=== PATIENT | male | born 1965 | race Caucasian/White ===

== ENCOUNTER 2019-02-19 19:32 | Emergency (ER) | payer BC, OTHER ==
[~2019-02-19] VITALS: Ht 188 cm; Wt 102.1 kg
[~2019-02-19 19:32] MED LIST: GABA100C9 PO; OME20GT; SERT-160 PO
[2019-02-19] MEDS ORDERED: ACETAMINOPHEN/CODEINE#3 (300/30mg) TAB PO ONE (23:00)
[2019-02-19 23:17] VITALS: BP 131/58
== END 2019-02-19 23:32 | disposition home or self-care (01) ==
LOC: ER 19:32
DX: R07.81 Pleurodynia (principal); Z79.899 Other long term (current) drug therapy; W18.39XA Other fall on same level, initial encounter; Y93.89 Activity, other specified; Y99.0 Civilian activity done for income or pay; Y92.89 Other specified places as the place of occurrence of the external cause
CPT/HCPCS: 71046

== ENCOUNTER → 2019-08-22 | Outpatient (CLI) | payer BC ==
[2019-08-22 08:45] LABS: Basophils # (auto) 0 10 ^3/uL (0-0.2); Basophils % (auto) 0.9 % (0.0-2.0); Eosinophils # (auto) 0.1 10 ^3/uL (0-0.8); Eosinophils % (auto) 1.1 % (0.0-7.0); Hematocrit 43.8 % (41.0-53.0); Hemoglobin 14.9 g/dL (13.5-17.5); Lymphocytes # (auto) 1.6 10 ^3/uL (0.4-5.4); Lymphocytes % (auto) 29.3 % (10.0-50.0); Mean Corpuscular Hemoglobin 30.9 pg (28.0-32.0); Monocytes # (auto) 0.5 10 ^3/uL (0-1.3); Monocytes % (auto) 8.5 % (0.0-12.0); Neutrophils # (auto) 3.2 10 ^3/uL (1.6-8.6); Neutrophils % (auto) 60.2 % (37.0-80.0); Nucleated Red Blood Cells % 0.1 %; Platelet Count (auto) 187 10^3/uL (140-450); Red Blood Cells 4.82 10^6/uL (4.5-5.90); Red Cell Distribution Width 13.4 % (11.8-14.3); White Blood Cell 5.3 10^3/uL (4.4-10.8)
[2019-08-22 08:46] LABS: Urine Bacteria NONE SEEN /hpf (None Seen); Urine Blood Negative /uL (Negative); Urine WBC 1 /hpf (0 - 3)
[2019-08-22 09:39] LABS: Albumin 4.1 g/dL (3.4-5.0); Potassium 4.6 mmol/L (3.5-5.1)
[2019-08-22 09:54] LABS: BUN/Creatinine Ratio 22.3; Bilirubin, Total 0.6 mg/dL (0.2-1.0); Calcium 9.2 mg/dL (8.5-10.1); Total Protein 7.6 g/dL (6.4-8.2)
== END | disposition home or self-care (01) ==
LOC: LAB 08:10
PROVIDERS: ATTEND Nurse Practitioner
DX: Z00.00 Encounter for general adult medical examination without abnormal findings (principal); E78.5 Hyperlipidemia, unspecified
CPT/HCPCS: 36415; 80053; 80061; 81001; 82270; 84443; 85025

== ENCOUNTER → 2020-10-26 | Day surgery (SDC) | payer BC ==
[2020-10-22 10:35] LABS: Basophils # (auto) 0.1 10 ^3/uL (0-0.2); Basophils % (auto) 1.2 % (0.0-2.0); Eosinophils # (auto) 0.1 10 ^3/uL (0-0.8); Eosinophils % (auto) 1.8 % (0.0-7.0); Hematocrit 39.2 % (41.0-53.0); Lymphocytes # (auto) 1.8 10 ^3/uL (0.4-5.4); Lymphocytes % (auto) 34.8 % (10.0-50.0); Mean Corpuscular Hemoglobin 32.5 pg (28.0-32.0); Mean Corpuscular Hgb Conc. 35.7 g/dL (32.0-36.0); Mean Corpuscular Volume 90.9 fL (80.0-100.0); Monocytes # (auto) 0.5 10 ^3/uL (0-1.3); Monocytes % (auto) 10.2 % (0.0-12.0); Neutrophils # (auto) 2.8 10 ^3/uL (1.6-8.6); Nucleated Red Blood Cells % 0.1 %; Platelet Count (auto) 172 10^3/uL (140-450); Red Blood Cells 4.32 10^6/uL (4.5-5.90); Red Cell Distribution Width 13.5 % (11.8-14.3); White Blood Cell 5.3 10^3/uL (4.4-10.8)
[2020-10-22 10:51] LABS: INR 0.96 (0.9-1.15); Partial Thromboplastin Time 30.1 sec (23.0-31.2)
[2020-10-22 11:20] LABS: Potassium 4.1 mmol/L (3.5-5.1)
[2020-10-22 11:21] LABS: Urine Bacteria NONE SEEN /hpf (None Seen); Urine Blood Negative /uL (Negative); Urine Specific Gravity 1.009 (1.001-1.035); Urine WBC <1 /hpf (0 - 3)
[2020-10-22 11:33] LABS: Albumin 4.1 g/dL (3.4-5.0); BUN/Creatinine Ratio 25.9; Bilirubin, Total 0.7 mg/dL (0.2-1.0); Calcium 8.8 mg/dL (8.5-10.1); Total Protein 7.7 g/dL (6.4-8.2)
[~2020-10-26] VITALS: Ht 188 cm; Wt 106.6 kg
[~2020-10-26] MED LIST changes: +BUPIVACAINE 0.25% INJ 50ML VIAL ONE; -GABA100C9 PO; +HYDR25TA5 PO; +HYDROmorphone HCL 2 MG/ML VL IV PRN; +IBUP800T27 PO; +LAMO100T44 PO; +LIDOCAINE 2% (LOCAL ANESTH.) PF 5ml SDV ONE; +LISI20TA28 PO; +MIDAZOLAM HCL 1MG/1ML-2 ML VIAL ONE; -OME20GT; +ONDANSETRON HCL 4 MG/2 ML VIAL IV PRN; +PROPOFOL 10 MG/ML 20 ML IV ONE; +ceFAZolin 1GM/50ML 100 ML IV ONE; +fentaNYL CITRATE 100 MCG/2 ML VL ONE
[2020-10-26 08:40] VITALS: BP 119/55
== END | disposition home or self-care (01) ==
LOC: SUR 06:03
PROVIDERS: ATTEND Orthopaedic Surgery Adult Reconstructive Orthopaedic Surgery
DX: M65.331 Trigger finger, right middle finger (principal); I10 Essential (primary) hypertension; F32.9 Major depressive disorder, single episode, unspecified; Z20.822 Contact with and (suspected) exposure to COVID-19
CPT/HCPCS: 26055; 36415; 80053; 81001; 85025; 85610; 85730; J0690; J2001; J2250; J2704; J3010; J3490; U0003

== ENCOUNTER 2020-11-08 08:06 | Inpatient (IN) | payer BC ==
[~2020-11-08] VITALS: Ht 188 cm; Wt 107.3 kg
[~2020-11-08 08:06] MED LIST changes: -BUPIVACAINE 0.25% INJ 50ML VIAL ONE; -HYDROmorphone HCL 2 MG/ML VL IV PRN; -LIDOCAINE 2% (LOCAL ANESTH.) PF 5ml SDV ONE; -MIDAZOLAM HCL 1MG/1ML-2 ML VIAL ONE; -ONDANSETRON HCL 4 MG/2 ML VIAL IV PRN; -PROPOFOL 10 MG/ML 20 ML IV ONE; -ceFAZolin 1GM/50ML 100 ML IV ONE; -fentaNYL CITRATE 100 MCG/2 ML VL ONE
[2020-11-08] MEDS ORDERED: SODIUM CHLORIDE 0.9% 1,000 ML IV ONE (09:45)
[2020-11-08] MEDS ORDERED: METOCLOPRAMIDE HCL 5MG/ml INJ 2ml VIAL IV ONE (09:45)
[2020-11-08] MEDS ORDERED: cefTRIAXone 1GM/50ML D5W 50 ML IV ONE (09:45)
[2020-11-08] MEDS ORDERED: HYDROmorphone HCL 2 MG/ML VL IV ONE (09:45)
[2020-11-08 10:30] LABS: Basophils # (auto) 0 10 ^3/uL (0-0.2); Basophils % (auto) 0.5 % (0.0-2.0); Eosinophils # (auto) 0 10 ^3/uL (0-0.8); Eosinophils % (auto) 0.6 % (0.0-7.0); Hematocrit 37.8 % (41.0-53.0); Hemoglobin 13.3 g/dL (13.5-17.5); Lymphocytes # (auto) 1.3 10 ^3/uL (0.4-5.4); Lymphocytes % (auto) 18.8 % (10.0-50.0); Mean Corpuscular Hemoglobin 32.2 pg (28.0-32.0); Mean Corpuscular Hgb Conc. 35.2 g/dL (32.0-36.0); Mean Corpuscular Volume 91.4 fL (80.0-100.0); Monocytes # (auto) 0.6 10 ^3/uL (0-1.3); Monocytes % (auto) 8.7 % (0.0-12.0); Neutrophils # (auto) 4.9 10 ^3/uL (1.6-8.6); Neutrophils % (auto) 71.4 % (37.0-80.0); Nucleated Red Blood Cells % 0.1 %; Platelet Count (auto) 166 10^3/uL (140-450); Red Blood Cells 4.13 10^6/uL (4.5-5.90); Red Cell Distribution Width 13.3 % (11.8-14.3); White Blood Cell 6.8 10^3/uL (4.4-10.8)
[2020-11-08 10:44] LABS: Albumin 3.7 g/dL (3.4-5.0); Calcium 8.9 mg/dL (8.5-10.1); Magnesium 2.5 mg/dL (1.6-2.6); Potassium 4.2 mmol/L (3.5-5.1)
[2020-11-08 10:47] LABS: BUN/Creatinine Ratio 22.1; Bilirubin, Total 0.5 mg/dL (0.2-1.0); Total Protein 7.3 g/dL (6.4-8.2)
[2020-11-08] MEDS ORDERED: ONDANSETRON HCL 4 MG/2 ML VIAL IV PRN (13:30)
[2020-11-08] MEDS ORDERED: MORPHINE SULF INJ 2 MG/ML SYRINGE 1ML IV PRN (13:30)
[2020-11-08] MEDS ORDERED: NITROGLYCERIN 0.4 MG SL TAB SL PRN (13:30)
[2020-11-08] MEDS: HYDROmorphone HCL 2 MG/ML VL IV PRN ×3 (13:53→21:50)
[2020-11-08] MEDS: CLINDAMYCIN 300MG IV 50 ML IV SCH ×2 (13:53→21:50)
[2020-11-08] MEDS: HYDROcodone-ACET 7.5/325MG TAB PO PRN (16:46)
[2020-11-08 20:08] VITALS: BP 141/64
[2020-11-08 22:00] VITALS: BP 141/64
[2020-11-09] MEDS: HYDROmorphone HCL 2 MG/ML VL IV PRN ×6 (02:32→22:43)
[2020-11-09 04:47] VITALS: BP 123/52
[2020-11-09] MEDS: CLINDAMYCIN 300MG IV 50 ML IV SCH ×3 (06:30→21:32)
[2020-11-09 07:03] LABS: Basophils # (auto) 0 10 ^3/uL (0-0.2); Basophils % (auto) 0.4 % (0.0-2.0); Eosinophils # (auto) 0.1 10 ^3/uL (0-0.8); Hematocrit 35.4 % (41.0-53.0); Hemoglobin 12.6 g/dL (13.5-17.5); Lymphocytes # (auto) 1.7 10 ^3/uL (0.4-5.4); Mean Corpuscular Hemoglobin 32.5 pg (28.0-32.0); Mean Corpuscular Hgb Conc. 35.7 g/dL (32.0-36.0); Monocytes # (auto) 0.5 10 ^3/uL (0-1.3); Monocytes % (auto) 9.2 % (0.0-12.0); Neutrophils # (auto) 2.9 10 ^3/uL (1.6-8.6); Neutrophils % (auto) 56.4 % (37.0-80.0); Platelet Count (auto) 154 10^3/uL (140-450); Red Blood Cells 3.89 10^6/uL (4.5-5.90); Red Cell Distribution Width 13.5 % (11.8-14.3); White Blood Cell 5.2 10^3/uL (4.4-10.8)
[2020-11-09 07:21] LABS: BUN/Creatinine Ratio 27.9; Calcium 8.7 mg/dL (8.5-10.1); Potassium 4.1 mmol/L (3.5-5.1)
[2020-11-09 09:00] VITALS: BP 134/64
[2020-11-09] MEDS: cefTRIAXone 1GM/50ML D5W 50 ML IV SCH (09:31)
[2020-11-09] MEDS: FLORASTOR (S. BOULARDII) 250 MG CAP PO SCH (09:31)
[2020-11-09 13:00] VITALS: BP 119/54
[2020-11-09 17:00] VITALS: BP 134/45
[2020-11-09] MEDS: HYDROcodone-ACET 7.5/325MG TAB PO PRN (17:25)
[2020-11-09 22:00] VITALS: BP 131/62
[2020-11-10] MEDS: HYDROmorphone HCL 2 MG/ML VL IV PRN ×5 (03:58→21:30)
[2020-11-10 05:00] VITALS: BP 141/63
[2020-11-10] MEDS: CLINDAMYCIN 300MG IV 50 ML IV SCH ×3 (06:19→21:30)
[2020-11-10 08:27] VITALS: BP 128/66
[2020-11-10] MEDS: FLORASTOR (S. BOULARDII) 250 MG CAP PO SCH (08:31)
[2020-11-10] MEDS: cefTRIAXone 1GM/50ML D5W 50 ML IV SCH (08:31)
[2020-11-10 12:43] VITALS: BP 129/70
[2020-11-10] MEDS ORDERED: HYDROcodone-ACET 10/325MG TAB PO ONE (13:00)
[2020-11-10 16:58] VITALS: BP 146/65
[2020-11-10 22:25] VITALS: BP 134/67
[2020-11-11 05:14] VITALS: BP 134/63
[2020-11-11] MEDS: CLINDAMYCIN 300MG IV 50 ML IV SCH ×2 (05:33→13:20)
[2020-11-11] MEDS: HYDROmorphone HCL 2 MG/ML VL IV PRN ×3 (05:33→13:19)
[2020-11-11] MEDS: cefTRIAXone 1GM/50ML D5W 50 ML IV SCH (08:35)
[2020-11-11 09:00] VITALS: BP 135/64
[2020-11-11] MEDS: FLORASTOR (S. BOULARDII) 250 MG CAP PO SCH (10:20)
[2020-11-11 13:00] VITALS: BP 123/68
[2020-11-11 16:38] VITALS: BP 123/79
[2020-11-11 16:43] VITALS: BP 142/61
== END 2020-11-11 17:00 | disposition home or self-care (01) | DRG 863 ==
LOC: ER 08:06 → OVERFLOW 13:22 → WEST WING 20:08
PROVIDERS: ADMIT Nurse Practitioner Acute Care; ATTEND Internal Medicine
DX: T81.40XA Infection following a procedure, unspecified, initial encounter (principal); L03.113 Cellulitis of right upper limb; Z20.822 Contact with and (suspected) exposure to COVID-19; I10 Essential (primary) hypertension; E66.9 Obesity, unspecified; Z96.659 Presence of unspecified artificial knee joint; Y83.8 Other surgical procedures as the cause of abnormal reaction of the patient, or of later complication, without mention of misadventure at the time of the procedure; B95.61 Methicillin susceptible Staphylococcus aureus infection as the cause of diseases classified elsewhere; Z79.899 Other long term (current) drug therapy; Y92.89 Other specified places as the place of occurrence of the external cause; Z68.30 Body mass index [BMI] 30.0-30.9, adult; Z71.3 Dietary counseling and surveillance
CPT/HCPCS: 36415; 73200; 80048; 80053; 83735; 85025; 87077; 87186; 87205; 87426; 96365; 96375; G0378; J0696; J3490

== ENCOUNTER → 2022-06-28 | Outpatient (CLI) | payer BC ==
[~2022-06-28] MED LIST changes: -IBUP800T27 PO
[2022-06-28 07:34] LABS: Basophils # (auto) 0 10 ^3/uL (0-0.2); Eosinophils # (auto) 0.2 10 ^3/uL (0-0.8); Eosinophils % (auto) 4.8 % (0.0-7.0); Hematocrit 42.1 % (41.0-53.0); Hemoglobin 14.5 g/dL (13.5-17.5); Lymphocytes # (auto) 1.6 10 ^3/uL (0.4-5.4); Lymphocytes % (auto) 34.3 % (10.0-50.0); Mean Corpuscular Hemoglobin 31.1 pg (28.0-32.0); Mean Corpuscular Hgb Conc. 34.5 g/dL (32.0-36.0); Mean Corpuscular Volume 90.2 fL (80.0-100.0); Monocytes # (auto) 0.4 10 ^3/uL (0-1.3); Monocytes % (auto) 8.6 % (0.0-12.0); Neutrophils # (auto) 2.4 10 ^3/uL (1.6-8.6); Neutrophils % (auto) 51.3 % (37.0-80.0); Nucleated Red Blood Cells % 0.5 %; Red Blood Cells 4.66 10^6/uL (4.5-5.90); Red Cell Distribution Width 13.8 % (11.8-14.3); White Blood Cell 4.8 10^3/uL (4.4-10.8)
[2022-06-28 07:42] LABS: Urine Bacteria NONE SEEN /hpf (None Seen); Urine Blood Negative /uL (Negative); Urine Specific Gravity 1.019 (1.001-1.035); Urine WBC <1 /hpf (0 - 3)
[2022-06-28 08:13] LABS: Potassium 4.5 mmol/L (3.5-5.1)
[2022-06-28 08:17] LABS: BUN/Creatinine Ratio 20.9; Calcium 9.2 mg/dL (8.5-10.1)
[2022-06-28 08:20] LABS: Bilirubin, Total 0.5 mg/dL (0.2-1.0); Total Protein 7.5 g/dL (6.4-8.2)
== END | disposition home or self-care (01) ==
LOC: LAB 07:18
PROVIDERS: ATTEND Nurse Practitioner
DX: I10 Essential (primary) hypertension (principal); E78.5 Hyperlipidemia, unspecified
CPT/HCPCS: 36415; 80053; 80061; 81001; 84443; 85025

== ENCOUNTER → 2022-10-13 | Outpatient (CLI) | payer BC ==
[2022-10-13 11:02] LABS: Basophils # (auto) 0 10 ^3/uL (0-0.2); Eosinophils # (auto) 0.1 10 ^3/uL (0-0.8); Eosinophils % (auto) 2.2 % (0.0-7.0); Hematocrit 39.5 % (41.0-53.0); Hemoglobin 13.7 g/dL (13.5-17.5); Lymphocytes # (auto) 1.5 10 ^3/uL (0.4-5.4); Lymphocytes % (auto) 34.2 % (10.0-50.0); Mean Corpuscular Hemoglobin 30.9 pg (28.0-32.0); Mean Corpuscular Hgb Conc. 34.7 g/dL (32.0-36.0); Mean Corpuscular Volume 89.2 fL (80.0-100.0); Monocytes # (auto) 0.3 10 ^3/uL (0-1.3); Monocytes % (auto) 7.8 % (0.0-12.0); Neutrophils # (auto) 2.5 10 ^3/uL (1.6-8.6); Neutrophils % (auto) 54.8 % (37.0-80.0); Nucleated Red Blood Cells % 0.2 %; Red Blood Cells 4.42 10^6/uL (4.5-5.90); Red Cell Distribution Width 13.8 % (11.8-14.3); White Blood Cell 4.5 10^3/uL (4.4-10.8)
[2022-10-13 11:13] LABS: Urine Bacteria NONE SEEN /hpf (None Seen); Urine Blood Negative /uL (Negative); Urine Specific Gravity 1.012 (1.001-1.035); Urine WBC <1 /hpf (0 - 3)
[2022-10-13 12:12] LABS: Potassium 4.3 mmol/L (3.5-5.1)
[2022-10-13 12:20] LABS: Albumin 4.1 g/dL (3.4-5.0); BUN/Creatinine Ratio 26.3 (10.0-20.0); Bilirubin, Total 0.5 mg/dL (0.2-1.0); Calcium 8.7 mg/dL (8.5-10.1); Total Protein 7.2 g/dL (6.4-8.2)
== END | disposition home or self-care (01) ==
LOC: LAB 10:37
PROVIDERS: ATTEND Nurse Practitioner
DX: I10 Essential (primary) hypertension (principal); E78.5 Hyperlipidemia, unspecified; R53.82 Chronic fatigue, unspecified
CPT/HCPCS: 36415; 80053; 80061; 81001; 84153; 84403; 84443; 85025

== ENCOUNTER 2024-10-28 06:16 | Inpatient (IN) | payer BC ==
[2024-10-24 10:55] LABS: Urine Bacteria None Seen /hpf (None Seen)
[2024-10-24 11:07] LABS: Basophils # (auto) 0.1 10 ^3/uL (0-0.2); Basophils % (auto) 0.9 % (0.0-2.0); Eosinophils # (auto) 0.1 10 ^3/uL (0-0.8); Eosinophils % (auto) 1.5 % (0.0-7.0); Hematocrit 43.4 % (41.0-53.0); Lymphocytes # (auto) 1.9 10 ^3/uL (0.4-5.4); Lymphocytes % (auto) 32.7 % (10.0-50.0); Mean Corpuscular Hemoglobin 31.1 pg (28.0-32.0); Mean Corpuscular Hgb Conc. 34.5 g/dL (32.0-36.0); Monocytes # (auto) 0.5 10 ^3/uL (0-1.3); Neutrophils # (auto) 3.2 10 ^3/uL (1.6-8.6); Neutrophils % (auto) 55.9 % (37.0-80.0); Platelet Count (auto) 177 10^3/uL (140-450); Red Blood Cells 4.82 10^6/uL (4.5-5.90); White Blood Cell 5.8 10^3/uL (4.4-10.8)
[2024-10-24 11:09] LABS: Urine Blood Negative /uL (Negative); Urine Clarity Clear (Clear); Urine Color Light-Yellow (Yellow); Urine Protein, UAD Negative (Negative); Urine Specific Gravity 1.009 (1.001-1.035); Urine Squamous Epithelial Cell None Seen /hpf (<5); Urine Urobilinogen Normal (Negative); Urine pH 5.5 (5.0-9.0)
[2024-10-24 11:13] LABS: Urine WBC < 1 /HPF (0-3)
[2024-10-24 11:25] LABS: Alanine Aminotransferase 36 U/L (7-40); Alkaline Phosphatase 90 U/L (46-116); Anion Gap 8 (5-15); Aspartate Aminotransferase 29 U/L (13-40); Bilirubin, Total 0.6 mg/dL (0.2-1.0); Blood Urea Nitrogen 18 mg/dL (9-23); Calcium 10.1 mg/dL (8.7-10.4); Carbon Dioxide 28 mmol/L (20-31); Chloride 103 mmol/L (98-107); Glucose 100 mg/dL (74-106); Potassium 4.5 mmol/L (3.5-5.1); Sodium 139 mmol/L (136-145); Total Protein 7.6 g/dL (5.7-8.2)
[2024-10-24 11:26] LABS: INR 0.96 (0.9-1.15); Partial Thromboplastin Time 28.2 SEC (24.5-34.5); Prothrombin Time 10.2 sec (9.3-11.8)
[2024-10-28] VITALS (14 sets, daily range): BP systolic 109–134; BP diastolic 44–67; PULSE 60–87; RESP 13–18; TEMP 98.4–99.6; O2SAT 90–97
[~2024-10-28] VITALS: Ht 188 cm; Wt 104.3 kg
[~2024-10-28 06:16] MED LIST changes: +BUPR-133 PO; -LAMO100T44 PO; -LISI20TA28 PO; +LISI20TA56 PO
[2024-10-28] MEDS: BUPIVACAINE 0.25% INJ 50ML VIAL ONE (06:48)
[2024-10-28] MEDS: VANCOMYCIN HCL 1000 MG VL ONE (06:50)
[2024-10-28] MEDS: KETOROLAC TROMETH 30 MG/ML 1ML VIAL ONE (07:01)
[2024-10-28] MEDS: KETOROLAC TROMETH 30 MG/ML 1ML VIAL IV ONE (07:15)
[2024-10-28] MEDS: ONDANSETRON HCL 4 MG/2 ML VIAL IV ONE (07:15)
[2024-10-28] MEDS: ACETAMINOPHEN IV 1000 MG/100ML (10MG/ML) IV ONE (07:15)
[2024-10-28] MEDS ORDERED: fentaNYL CITRATE 100 MCG/2 ML VL ONE (07:24)
[2024-10-28] MEDS ORDERED: MIDAZOLAM HCL 2MG/2ML 2ml VIAL (1mg/ml) ONE (07:24)
[2024-10-28] MEDS ORDERED: LIDOCAINE 2% (LOCAL ANESTH.) PF 5ml SDV ONE (07:25)
[2024-10-28] MEDS ORDERED: ONDANSETRON HCL 4 MG/2 ML VIAL ONE (07:25)
[2024-10-28] MEDS ORDERED: DexAMETHasone SOD PHOS 10MG/1ML VIAL INJ ONE (07:25)
[2024-10-28] MEDS ORDERED: PROPOFOL 10 MG/ML 20 ML IV ONE (07:26)
[2024-10-28] MEDS ORDERED: HYDROmorphone HCL 2 MG/ML VL/or syr IV PRN ×2 (07:30→13:30)
[2024-10-28] MEDS ORDERED: KETOROLAC TROMETH 30 MG/ML 1ML VIAL IV PRN (07:30)
[2024-10-28] MEDS ORDERED: MORPHINE SULFATE INJ 2 MG/ml SYRG IV PRN (07:30)
[2024-10-28] MEDS ORDERED: NITROGLYCERIN 0.4 MG SL TAB SL PRN (07:30)
[2024-10-28] MEDS: ceFAZolin 1GM/50ML 50 ML IV SCH (07:30)
[2024-10-28] MEDS ORDERED: ONDANSETRON HCL 4 MG/2 ML VIAL IV PRN ×2 (07:30→10:30)
[2024-10-28] MEDS: LACTATED RINGER'S 1,000 ML IV SCH (07:30)
[2024-10-28] MEDS: ceFAZolin 2 GM/D5W50ml 50 ML IV ONE (08:30)
[2024-10-28] MEDS: CEFEPIME 1GM/ 50ML 50 ML IV ONE (08:30)
[2024-10-28] MEDS: TRANEXAMIC ACID 20 ML ONE (08:45)
[2024-10-28] MEDS ORDERED: ePHEDrine SULFATE 50 MG/ML AMP ONE (08:56)
[2024-10-28] MEDS: MORPHINE SULF PF 5 MG/10 ML VIAL ONE (09:55)
[2024-10-28] MEDS: oxyCODONE ER 10 MG TAB PO SCH (10:00)
[2024-10-28] MEDS: ASPirin 325 MG TAB PO SCH (10:00)
[2024-10-28] MEDS: DOCUSATE SOD 100 MG CAP PO SCH (10:00)
[2024-10-28] MEDS ORDERED: SERTRALINE HCL 50 MG TAB PO SCH (10:00)
[2024-10-28] MEDS: hydroCHLOROthiazide 25 MG TAB PO SCH (10:00)
[2024-10-28] MEDS: CEFEPIME 1GM/ 50ML 50 ML IV SCH (10:00)
[2024-10-28] MEDS ORDERED: BUPROPION HCL 75 MG PO SCH (10:00)
[2024-10-28] MEDS: LISINOPRIL 20 MG TAB PO SCH (10:00)
[2024-10-28] MEDS ORDERED: diphenhdrAMINE HCL 50 MG/1 ML VL IV PRN (10:30)
[2024-10-28] MEDS ORDERED: NALOXONE HCL 0.4 MG/ML VIAL IV PRN (10:30)
[2024-10-28] MEDS: KETOROLAC TROMETH 30 MG/ML 1ML VIAL IV PRN (13:00)
--- NOTE | 2024-10-28 13:57 | DVH ---
EXAM: XY R KNEE 3V XRAY CLINICAL INDICATION: S/P SURGERY TECHNIQUE: XY R KNEE 3V XRAY Comparison: None FINDINGS/IMPRESSION: Right total knee arthroplasty with surgical skin nelson present.
[2024-10-28] MEDS: SODIUM CHLOR 0.9% PF (SALINE LOCK) 10ML VIAL/SYR IV SCH (14:00)
--- NOTE | 2024-10-28 14:35 | DVHHP2 ---
Review of Systems Allergies: Coded Allergies: NO KNOWN ALLERGIES (Unverified , 05/20/11) Medications Current Medications Medications Dose Ordered Sig/Christian Route Start Time Stop Time Status Last Admin Dose Admin Hydrochlorothiazide 12.5 mg DAILY PO 10/28/24 10:00 Lisinopril 10 mg DAILY PO 10/28/24 10:00 Patient Own Medication 75 mg BID PO 10/28/24 10:00 Patient Own Medication 100 mg QPM PO 10/28/24 18:00 UNV Lactated Ringer's 1,000 ml @ 100 mls/hr Q10H IV 10/28/24 07:30 10/28/24 07:30 100 MLS/HR Sodium Chloride 10 ml Q8HR IV 10/28/24 14:00 Cefazolin Sodium 50 ml @ 50 mls/hr Q6H IV 10/28/24 07:30 10/28/24 20:29 Oxycodone/ Acetaminophen 1 tab Q4HP PRN PO 10/28/24 07:30 Hydromorphone HCl 1 mg Q2HP PRN IV 10/28/24 07:30 Oxycodone HCl 10 mg Q12HR PO 10/28/24 10:00 Ondansetron HCl 4 mg Q6HP PRN IV 10/28/24 07:30 Docusate Sodium 100 mg Q12HR PO 10/28/24 10:00 10/28/24 10:00 100 MG Nitroglycerin 0.4 mg Q5MINP PRN SL 10/28/24 07:30 Morphine Sulfate 2 mg Q30M PRN IV 10/28/24 07:30 Cefepime HCl 50 ml @ 12.5 mls/hr DAILY IV 10/28/24 10:00 Ketorolac Tromethamine 15 mg Q6HPRN PRN IV 10/28/24 07:30 11/02/24 07:29 Aspirin 325 mg DAILY PO 10/28/24 10:00 Pantoprazole Sodium 40 mg BID@0600,1700 PO 10/28/24 17:00 Sertraline HCl 100 mg QPM PO 10/28/24 18:00 Diphenhydramine HCl 25 mg Q4HP PRN IV 10/28/24 10:30 Ondansetron HCl 4 mg Q4HP PRN IV 10/28/24 10:30 Ketorolac Tromethamine 30 mg Q6HP PRN IV 10/28/24 10:30 11/02/24 10:29 10/28/24 13:00 30 MG Hydromorphone HCl 0.25 mg 5XD PRN IV 10/28/24 13:30 UNV Exam Vital Signs Vital Signs Date Time Temp Pulse Resp B/P (MAP) Pulse Ox O2 Delivery O2 Flow Rate FiO2 10/28/24 14:00 99.6 66 15 124/59 (80) 95 99.6 10/28/24 10:25 Room Air 10/28/24 10:10 9.0 Labs/Xrays Labs Test 10/24/24 10:49 Range/Units White Blood Count 5.8 4.4-10.8 10^3/uL Red Blood Count 4.82 4.5-5.90 10^6/uL Hemoglobin 15.0 13.5-17.5 g/dL Hematocrit 43.4 41.0-53.0 % Mean Corpuscular Volume 90.0 80.0-100.0 fL Mean Corpuscular Hemoglobin 31.1 28.0-32.0 pg Mean Corpuscular Hemoglobin Concent 34.5 32.0-36.0 g/dL Red Cell Distribution Width 14.0 11.8-14.3 % Platelet Count 177 140-450 10^3/uL Mean Platelet Volume 8.9 6.9-10.8 fL Neutrophils (%) (Auto) 55.9 37.0-80.0 % Lymphocytes (%) (Auto) 32.7 10.0-50.0 % Monocytes (%) (Auto) 9.0 0.0-12.0 % Eosinophils (%) (Auto) 1.5 0.0-7.0 % Basophils (%) (Auto) 0.9 0.0-2.0 % Neutrophils # (Auto) 3.2 1.6-8.6 10 ^3/uL Lymphocytes # (Auto) 1.9 0.4-5.4 10 ^3/uL Monocytes # (Auto) 0.5 0-1.3 10 ^3/uL Eosinophils # (Auto) 0.1 0-0.8 10 ^3/uL Basophils # (Auto) 0.1 0-0.2 10 ^3/uL Nucleated Red Blood Cells 0.0 % Prothrombin Time 10.2 9.3-11.8 sec Prothrombin Time INR 0.96 0.9-1.15 Activated Partial Thromboplast Time 28.2 24.5-34.5 SEC Urine Color Light-yellow Yellow Urine Clarity Clear Clear Urine pH 5.5 5.0-9.0 Urine Specific [place] 1.009 1.001-1.035 Urine Protein Negative Negative Urine Ketones Negative Negative Urine Blood Negative Negative /uL Urine Nitrite Negative Negative Urine Bilirubin Negative Negative Urine Urobilinogen Normal Negative mg/dL Urine Leukocyte Esterase Negative Negative /uL Urine RBC <1 0 - 3 /hpf Urine Microscopic WBC < 1 0-3 /HPF Urine Squamous Epithelial Cells None seen <5 /hpf Urine Bacteria None seen None Seen /hpf Urine Glucose Normal Normal mg/dL Sodium Level 139 136-145 mmol/L Potassium Level 4.5 3.5-5.1 mmol/L Chloride Level 103 98-107 mmol/L Carbon Dioxide Level 28 20-31 mmol/L Anion Gap 8 5-15 Blood Urea Nitrogen 18 9-23 mg/dL Creatinine 0.90 0.700-1.30 mg/dL Glomerular Filtration Rate Calc 100 >90 mL/min BUN/Creatinine Ratio 20.0 10.0-20.0 Serum Glucose 100 74-106 mg/dL Calcium Level 10.1 8.7-10.4 mg/dL Total Bilirubin 0.6 0.2-1.0 mg/dL Aspartate Amino Transferase (AST) 29 13-40 U/L Alanine Aminotransferase (ALT) 36 7-40 U/L Alkaline Phosphatase 90 46-116 U/L Total Protein 7.6 5.7-8.2 g/dL Albumin 5.0 H 3.2-4.8 g/dL Assessment/Plan Assessment/Plan SEE DICTATED NOTE Plan discussed with: Patient Date of Service: October 28, 2024 Billing Provider: GABRIELLA MOSQUERA MD Common Visit Codes: [id number] INP/OBS CARE (HIGH) GABRIELLA MOSQUERA MD October 28, 2024 14:35
--- NOTE | 2024-10-28 14:47 | DVHHP ---
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 The patient complains of minimal pain. No chest pain, no shortness of breath, no nausea or vomiting. REVIEW OF SYSTEMS: Otherwise currently negative. PAST MEDICAL HISTORY: Significant for hypertension and anxiety. MEDICATIONS: He takes bupropion, sertraline, lisinopril, and hydrochlorothiazide. ALLERGIES: No known drug allergies. SOCIAL HISTORY: Nonsmoker. Alcohol lives at home with his . FAMILY HISTORY: Negative. PHYSICAL EXAMINATION: GENERAL: The patient is awake, alert. VITAL SIGNS: Temperature of 99.6, pulse 66 per minute, blood pressure 124/59. SHEENT: Unremarkable. NECK: There is no JVD. No pedal edema. LUNGS: Equal bilaterally. No added sounds. CARDIOVASCULAR: S1 and S2 is regular without murmurs. ABDOMEN: Soft. There is no organomegaly. NEUROLOGIC: Nonfocal. MUSCULOSKELETAL: The right knee has a dressing in place. ASSESSMENT AND PLAN: * Hypertension for which blood pressure will be monitored. * Anxiety/depression for which he will continue his home medications. * Status post surgery on the right knee for DJD of the knee for which he will be placed on physical therapy and pain medications. MD KT [place]/DEVEN TID: [id number] RECEIPT: [id number]
[2024-10-28] MEDS: OXYCODONE W/ ACETAMINOPHEN 5/325MG TABLET PO PRN (16:32)
[2024-10-28] MEDS: PANTOPRAZOLE 40 MG TAB PO SCH (17:18)
[2024-10-28] MEDS ORDERED: PATIENTS OWN MEDICATION (Sertraline Hcl 100 MG) PO SCH (18:00)
[2024-10-28] MEDS: buPROPion HCL 75 MG TAB PO SCH (18:22)
[2024-10-28] MEDS: SERTRALINE HCL 50 MG TAB PO SCH (18:22)
[2024-10-29] VITALS (15 sets, daily range): BP systolic 109–128; BP diastolic 42–65; PULSE 50–73; RESP 15–21; TEMP 97.6–98.5; O2SAT 92–100
[2024-10-29 07:17] LABS: Alanine Aminotransferase 27 U/L (7-40); Albumin 4.1 g/dL (3.2-4.8); Alkaline Phosphatase 67 U/L (46-116); Anion Gap 7 (5-15); Aspartate Aminotransferase 21 U/L (13-40); Calcium 9.4 mg/dL (8.7-10.4); Carbon Dioxide 27 mmol/L (20-31); Chloride 103 mmol/L (98-107); Potassium 4.6 mmol/L (3.5-5.1); Sodium 137 mmol/L (136-145); Total Protein 6.2 g/dL (5.7-8.2)
[2024-10-29 07:18] LABS: Bilirubin, Total 0.5 mg/dL (0.2-1.0)
[2024-10-29 07:20] LABS: Blood Urea Nitrogen 26 mg/dL (9-23); Glucose 147 mg/dL (74-106)
[2024-10-29 07:22] LABS: Basophils # (auto) 0 10 ^3/uL (0-0.2); Basophils % (auto) 0.1 % (0.0-2.0); Eosinophils # (auto) 0 10 ^3/uL (0-0.8); Eosinophils % (auto) 0.1 % (0.0-7.0); Hematocrit 34.4 % (41.0-53.0); Lymphocytes # (auto) 0.9 10 ^3/uL (0.4-5.4); Lymphocytes % (auto) 11.4 % (10.0-50.0); Mean Corpuscular Hemoglobin 31.8 pg (28.0-32.0); Mean Corpuscular Hgb Conc. 34.9 g/dL (32.0-36.0); Mean Corpuscular Volume 91.1 fL (80.0-100.0); Monocytes # (auto) 0.7 10 ^3/uL (0-1.3); Monocytes % (auto) 8.5 % (0.0-12.0); Neutrophils # (auto) 6.6 10 ^3/uL (1.6-8.6); Neutrophils % (auto) 79.9 % (37.0-80.0); Platelet Count (auto) 148 10^3/uL (140-450); Red Blood Cells 3.78 10^6/uL (4.5-5.90); Red Cell Distribution Width 14.2 % (11.8-14.3); White Blood Cell 8.3 10^3/uL (4.4-10.8)
--- NOTE | 2024-10-29 10:47 | DVHPN2 ---
Progress Note Date Seen: October 29, 2024 Medical Necessity Reason Pt with a Central, PICC or Fol: No Subjective Patient reports: No new complaints Review of Systems: HEENT:Normal, CVS:Normal, RESPIRATORY:Normal, GI:Normal, :Normal, MSK:Normal, NEURO:Normal Objective vital signs Vital Sign Date Time Temp Pulse Resp B/P (MAP) Pulse Ox O2 Delivery O2 Flow Rate FiO2 10/29/24 08:20 98.1 67 19 122/65 (84) 93 98.1 10/29/24 08:01 Room Air* 0 21 Total Intake and Output 10/28/24 10/28/24 10/29/24 15:00 23:00 07:00 Intake Total 120 ml 850 ml 750 ml Output Total 600 ml Balance 120 ml 850 ml 150 ml medications Current Medications Medications Dose Ordered Sig/Christian Route Start Time Stop Time Status Last Admin Dose Admin Patient Own Medication 100 mg QPM PO 10/28/24 18:00 UNV Lactated Ringer's 1,000 ml @ 100 mls/hr Q10H IV 10/28/24 07:30 10/28/24 18:23 100 MLS/HR Sodium Chloride 10 ml Q8HR IV 10/28/24 14:00 10/29/24 06:30 10 ML Oxycodone/ Acetaminophen 1 tab Q4HP PRN PO 10/28/24 07:30 Hold 10/28/24 16:32 1 TAB Oxycodone HCl 10 mg Q12HR PO 10/28/24 10:00 10/29/24 08:39 10 MG Ondansetron HCl 4 mg Q6HP PRN IV 10/28/24 07:30 Docusate Sodium 100 mg Q12HR PO 10/28/24 10:00 10/29/24 08:38 100 MG Nitroglycerin 0.4 mg Q5MINP PRN SL 10/28/24 07:30 Morphine Sulfate 2 mg Q30M PRN IV 10/28/24 07:30 Cefepime HCl 50 ml @ 12.5 mls/hr DAILY IV 10/28/24 10:00 10/29/24 08:39 12.5 MLS/HR Ketorolac Tromethamine 15 mg Q6HPRN PRN IV 10/28/24 07:30 11/02/24 07:29 Hold Aspirin 325 mg DAILY PO 10/28/24 10:00 10/29/24 08:38 325 MG Pantoprazole Sodium 40 mg BID@0600,1700 PO 10/28/24 17:00 10/29/24 06:30 40 MG Sertraline HCl 100 mg QPM PO 10/28/24 18:00 10/28/24 18:22 100 MG Diphenhydramine HCl 25 mg Q4HP PRN IV 10/28/24 10:30 Ondansetron HCl 4 mg Q4HP PRN IV 10/28/24 10:30 Ketorolac Tromethamine 30 mg Q6HP PRN IV 10/28/24 10:30 11/02/24 10:29 Hold 10/28/24 13:00 30 MG Hydromorphone HCl 0.25 mg 5XD PRN IV 10/28/24 13:30 Hydromorphone HCl 1 mg Q3HP PRN IV 10/28/24 14:45 Bupropion HCl 75 mg BID@07,19 PO 10/28/24 19:00 10/29/24 06:55 75 MG Examination: GENERAL:Normal, HEENT:Normal, NECK:Normal, LUNGS:Normal, CVS:Normal, ABDOMEN:Normal, MSK:Normal, MSK:Abnormal (right knee dressing), SKIN:Normal, NEURO:Normal, :Normal laboratory and microbiology Laboratory Tests 10/29/24 06:10 Test 10/29/24 06:10 Range/Units Serum Glucose 147 H 74-106 mg/dL Problem List/Assessment/Plan Problem List/Assessment/Plan * Hypertension for which blood pressure will be monitored. * Anxiety/depression for which he will continue his home medications. * Status post surgery on the right knee for DJD of the knee for which he will be placed on physical therapy and pain medications. Plan discussed with: Patient My Orders My Orders Orders - GABRIELLA MOSQUERA MD Procedure Category Date Status Time Hydromorphone PHA 10/28/24 In Process Injection (Dilaudid 14:45 Bupropion Tablet PHA 10/28/24 In Process (Wellbutrin Tablet) 19:00 Discontinue Tele NGA 10/29/24 Verified 10:43 Transfer Orders XFER 10/29/24 Verified 10:43 Date of Service: October 29, 2024 Billing Provider: GABRIELLA MOSQUERA MD Common Visit Codes: [id number] INP/OBS CARE(HIGH) GABRIELLA MOSQUERA MD October 29, 2024 10:47
[2024-10-29] MEDS: HYDROmorphone HCL 2 MG/ML VL/or syr IV PRN (13:38)
[2024-10-30 01:00] VITALS: BP 131/60; PULSE 62; RESP 18; TEMP 97.9; O2SAT 98
[2024-10-30 05:00] VITALS: BP 129/59; PULSE 58; RESP 18; TEMP 97.9; O2SAT 96
[2024-10-30 07:01] LABS: Hemoglobin 11.4 g/dL (13.5-17.5)
--- NOTE | 2024-10-30 07:42 | DVHPN2 ---
Progress Note Date Seen: October 30, 2024 Medical Necessity Reason Pt with a Central, PICC or Fol: No Subjective Patient reports: No new complaints Objective vital signs Vital Sign Date Time Temp Pulse Resp B/P (MAP) Pulse Ox O2 Delivery O2 Flow Rate FiO2 10/30/24 05:36 63 16 119/58 10/30/24 05:00 97.9 96 97.9 10/29/24 20:30 Room Air* 0 21 Total Intake and Output 10/29/24 10/29/24 10/30/24 15:00 23:00 07:00 Intake Total 290 ml 2500 ml 800 ml Output Total 800 ml 600 ml Balance -510 ml 2500 ml 200 ml medications Current Medications Medications Dose Ordered Sig/Christian Route Start Time Stop Time Status Last Admin Dose Admin Patient Own Medication 100 mg QPM PO 10/28/24 18:00 UNV Lactated Ringer's 1,000 ml @ 100 mls/hr Q10H IV 10/28/24 07:30 10/28/24 18:23 100 MLS/HR Sodium Chloride 10 ml Q8HR IV 10/28/24 14:00 10/30/24 05:06 10 ML Oxycodone/ Acetaminophen 1 tab Q4HP PRN PO 10/28/24 07:30 Hold 10/28/24 16:32 1 TAB Oxycodone HCl 10 mg Q12HR PO 10/28/24 10:00 10/29/24 21:21 10 MG Ondansetron HCl 4 mg Q6HP PRN IV 10/28/24 07:30 Docusate Sodium 100 mg Q12HR PO 10/28/24 10:00 10/29/24 21:20 100 MG Nitroglycerin 0.4 mg Q5MINP PRN SL 10/28/24 07:30 Morphine Sulfate 2 mg Q30M PRN IV 10/28/24 07:30 Cefepime HCl 50 ml @ 12.5 mls/hr DAILY IV 10/28/24 10:00 10/29/24 08:39 12.5 MLS/HR Ketorolac Tromethamine 15 mg Q6HPRN PRN IV 10/28/24 07:30 11/02/24 07:29 Hold Aspirin 325 mg DAILY PO 10/28/24 10:00 10/29/24 08:38 325 MG Pantoprazole Sodium 40 mg BID@0600,1700 PO 10/28/24 17:00 10/30/24 05:06 40 MG Sertraline HCl 100 mg QPM PO 10/28/24 18:00 10/29/24 17:41 100 MG Diphenhydramine HCl 25 mg Q4HP PRN IV 10/28/24 10:30 Ondansetron HCl 4 mg Q4HP PRN IV 10/28/24 10:30 Ketorolac Tromethamine 30 mg Q6HP PRN IV 10/28/24 10:30 11/02/24 10:29 Hold 10/28/24 13:00 30 MG Hydromorphone HCl 0.25 mg 5XD PRN IV 10/28/24 13:30 Hydromorphone HCl 1 mg Q3HP PRN IV 10/28/24 14:45 10/30/24 05:06 1 MG Bupropion HCl 75 mg BID@07,19 PO 10/28/24 19:00 10/30/24 06:28 75 MG Examination: GENERAL:Normal, MSK:Abnormal laboratory and microbiology Laboratory Tests 10/30/24 05:57 10/29/24 06:10 Test 10/29/24 06:10 Range/Units Serum Glucose 147 H 74-106 mg/dL Problem List/Assessment/Plan Problem List/Assessment/Plan 59 year old male who is s/p Right TKA POD 2 1. Pain control 2. DVT ppx 3. CPM as ordered 4. Physical therapy 5. Continue with Prevena wound vac 6. follow up in 2 weeks at [facility] ortho clinic as scheduled 7. prescriptions for percocet, colace, aspirin and keflex to be sent to preferred [facility] in [place] 8. Clear for discharge from orthopedic standpoint as discussed with patient with the following discharge recommendations: Total Knee Arthroplasty Discharge Instructions Wound Care 1. You will likely have a gel-type dressing over your wound, you may keep this on for 7-14 days after leaving the hospital until your first post-op visit, unless it becomes soiled or your skin becomes irritated. If a wound vac dressing is placed on your knee this is to be left in place for one week and will be changed as needed. After your remove the dressing or wound vac, the home health nurse may place clean dry dressing over your wound. Keep wound covered, clean and dry for two weeks. 2. Lillie will be removed during your initial post-op visit. If you have concerns about our wound, please call the office immediately. If nervous about staple removal can take pain pill one hour prior to appointment. 3. If there is drainage from your wound, change the dressing daily until it stops. If drainage lasts more than 10 days, call our office. 4. Low grade (up to 100 degrees) fever is common for the first week after surgery. You should take your temperature daily. If you have fevers of 101 or more, please call the office. Medication Management 1. You will be discharged with pain medication, a blood thinner (unless you were previously on a blood thinner prior to surgery) and stool softener. Please follow the instructions regarding these medications as provided by your nurse at the hospital upon discharge. 2. Blood clots in the leg are a known complication of surgery. It is very important that you take the medication to protect against clots. Depending on what you are discharged on typically it is Lovenox 40mg daily for 2 weeks or Aspirin 81mg twice daily for 4 weeks. After you finish this, you should then take baby Aspirin (81mg) once daily for 2 weeks. 3. You should restart all of your prescription medications once discharged from the hospital/surgery center unless specifically instructed otherwise. 4. Herbal supplements may be restarted 2 weeks after surgery. 5. If you have been given Coumadin as a blood thinner, please follow up with your rehabilitation supervisor during the first two weeks after surgery to review medications and overall medical well-being. 6. Please note that narcotic pain medication may cause constipation. Please remember to take stool softeners (Colace) when using narcotics to help reduce the change of constipation. You should not use alcohol together with narcotic medication. Activity 1. You can bear as much weight as you tolerate on your knee unless specifically instructed otherwise. You may use the walking aid which you were discharged with and switch to a cane whenever you feel comfortable doing so. You should use an assistive device until you can walk comfortably without it. Keep in mind that every patient moves at their own speed of recovery so take your time. 2. A physical therapist will visit you at home. 3. Use CPM machine as instructed (6 hours a day) and increase flexion by 5 degrees daily. 4. High impact activity such as jumping, aerobics, tennis, and skiing are not permitted during the first 3 months after surgery. These activities can contribute to accelerated wear and should be done with caution after this time. Discuss this with your surgeon if you have questions. 5. Although a bath or whirlpool is NOT permitted during the first 2-3 weeks, you may shower as soon as you get home from the hospital provided there is no wound drainage. Place a dressing or covering over the wound when you shower. 6. Swimming is not permitted until the wound is healed, which typically occurs approximately 3-4 weeks after surgery. [facility] [place] 1. Driving is not permitted within the first 2 weeks. 2. Your first postoperative visit will take place 2 weeks after discharge. Please call the office once you are home from the hospital to arrange this appointment. 3. Antibiotic preventative treatment is required before dental or other invasive procedures. Please ask your surgeon about this at your first postoperative visit. If you experience chest pain, shortness of breath or severe painful calf swelling, go to the nearest emergency room to be evaluated. Please call our office once your situation is stabilized. Plan discussed with: Patient Date of Service: October 30, 2024 Billing Provider: NATALIE FITZGERALD MD Common Visit Codes: NOT BILLABLE TARIK ALVARADO NP October 30, 2024 07:42
[2024-10-30 09:00] VITALS: BP 117/52; PULSE 55; RESP 20; TEMP 97.9; O2SAT 96
--- NOTE | 2024-10-30 11:31 | DVHDS2 ---
Discharge Summary Date of Admission October 28, 2024 at 07:26 Date of Discharge: October 30, 2024 Labs/Diagnostic Data: Laboratory Results Test 10/30/24 05:57 10/29/24 06:10 10/24/24 10:49 Hemoglobin 11.4 g/dL (13.5-17.5) Hematocrit 33.0 % (41.0-53.0) White Blood Count 8.3 10^3/uL (4.4-10.8) Red Blood Count 3.78 10^6/uL (4.5-5.90) Mean Corpuscular Volume 91.1 fL (80.0-100.0) Mean Corpuscular Hemoglobin 31.8 pg (28.0-32.0) Mean Corpuscular Hemoglobin Concent 34.9 g/dL (32.0-36.0) Red Cell Distribution Width 14.2 % (11.8-14.3) Platelet Count 148 10^3/uL (140-450) Mean Platelet Volume 9.4 fL (6.9-10.8) Neutrophils (%) (Auto) 79.9 % (37.0-80.0) Lymphocytes (%) (Auto) 11.4 % (10.0-50.0) Monocytes (%) (Auto) 8.5 % (0.0-12.0) Eosinophils (%) (Auto) 0.1 % (0.0-7.0) Basophils (%) (Auto) 0.1 % (0.0-2.0) Neutrophils # (Auto) 6.6 10 ^3/uL (1.6-8.6) Lymphocytes # (Auto) 0.9 10 ^3/uL (0.4-5.4) Monocytes # (Auto) 0.7 10 ^3/uL (0-1.3) Eosinophils # (Auto) 0 10 ^3/uL (0-0.8) Basophils # (Auto) 0 10 ^3/uL (0-0.2) Nucleated Red Blood Cells 0.0 % Sodium Level 137 mmol/L (136-145) Potassium Level 4.6 mmol/L (3.5-5.1) Chloride Level 103 mmol/L (98-107) Carbon Dioxide Level 27 mmol/L (20-31) Anion Gap 7 (5-15) Blood Urea Nitrogen 26 mg/dL (9-23) Creatinine 0.84 mg/dL (0.700-1.30) Glomerular Filtration Rate Calc 102 mL/min (>90) BUN/Creatinine Ratio 31.0 (10.0-20.0) Serum Glucose 147 mg/dL (74-106) Calcium Level 9.4 mg/dL (8.7-10.4) Total Bilirubin 0.5 mg/dL (0.2-1.0) Aspartate Amino Transferase (AST) 21 U/L (13-40) Alanine Aminotransferase (ALT) 27 U/L (7-40) Alkaline Phosphatase 67 U/L (46-116) Total Protein 6.2 g/dL (5.7-8.2) Albumin 4.1 g/dL (3.2-4.8) Prothrombin Time 10.2 sec (9.3-11.8) Prothrombin Time INR 0.96 (0.9-1.15) Activated Partial Thromboplast Time 28.2 SEC (24.5-34.5) Urine Color Light-yellow (Yellow) Urine Clarity Clear (Clear) Urine pH 5.5 (5.0-9.0) Urine Specific [place] 1.009 (1.001-1.035) Urine Protein Negative (Negative) Urine Ketones Negative (Negative) Urine Blood Negative /uL (Negative) Urine Nitrite Negative (Negative) Urine Bilirubin Negative (Negative) Urine Urobilinogen Normal mg/dL (Negative) Urine Leukocyte Esterase Negative /uL (Negative) Urine RBC <1 /hpf (0 - 3) Urine Microscopic WBC < 1 /HPF (0-3) Urine Squamous Epithelial Cells None seen /hpf (<5) Urine Bacteria None seen /hpf (None Seen) Urine Glucose Normal mg/dL (Normal) Other Laboratory Tests 10/30/24 05:57 10/29/24 06:10 Brief Hx & Hospital Course: SEE DICTATED NOTE Condition at Discharge: Good Final Diagnosis/Problems List RIGHT KNEE SURGERY Discharge Disposition: Home Discharge Instruct/Medications Diet: Cardiac 2g Na,low cholest Activity: No Restrictions, As Tolerated Follow Up/Referral: FU WITH [facility] Medications: RESUME HOME MEDS MEDS PER [facility] Discharge Statement: "Patient was advised to return to the ER or call 911 if any headaches, dizziness, shortness of breath, chest pain, abdominal pain, bleeding, fevers, or worsening of medical condition. Patient was counseled about treatment plan, medications, possible side effects, patientverbalized understanding. All questions were answered to the best of my ability. This discharge took greater then 30 minutes in planning, reviewing documentation, counseling the patient, and discussing with other team members." ASSESSMENT ASSESSMENT Assessment RIGHT KNEE SURGERY Date of Service: October 30, 2024 Billing Provider: GABRIELLA MOSQUERA MD Common Visit Codes: [id number] DISCH DAY >30min GABRIELLA MOSQUERA MD October 30, 2024 11:31
--- NOTE | 2024-10-30 11:59 | DVHOP2 ---
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 These include but are not limited to complications of anesthesia, postoperative infection, incomplete relief of symptoms, recurrence of symptoms, damage to blood vessels, nerves and tendons, deep venous thrombosis, pulmonary embolism and possible need for repeat surgery in the future. Estimated Blood Loss: 50 cc Indications for Surgery: right knee osteonecrosis with multiple previous surgeries causing significant scar tissue; hx of osteomyelitis in past with multiple incisions over the knee Name of Procedure Performed Right total knee arthroplasty using computer navigation, removal of scar tissue Procedure Details Procedure Details: FINDINGS: degenerative disease with grade IV changes with valgus deformity; hx of mulitple previous surgeries causing scar tissue within knee; multiple incision over leg INDICATION: This patient has failed non-operative treatments for knee arthritis and is now indicated for a total knee replacement. Preoperatively in the waiting area as well as in the office, I had a long discussion with the patient regarding the plan, the expected outcome, the risks, benefits, and alternatives of surgery. The risks include, but are not limited to, infection (which may require future surgery and removal of implants) , bleeding (which may require a transfusion), damage to nerves, arteries, veins, tendons, muscles and other adjacent structures. Also discussed the possibilities of intraoperative fractures, implant loosening, heterotopic bone formation, and revision for variety of reasons, and medical complications etc. This was discussed at length and consent has been obtained. DESCRIPTION OF PROCEDURE: In the preoperative holding area, the consent was reviewed and the appropriate extremity was verified by the patient and marked with my initials. The patient was then transferred to the operating theatre. Appropriate anesthesia was induced. All bony prominences were well padded. A time out was performed verifying the side and site of surgery according to standard protocol. Preoperative antibiotics were given 10 minutes prior to tourniquet inflation. Tranexamic was given. A well padded thigh tourniquet was applied. The extremity was then prepped and draped in the usual sterile fashion. The extremity was exsanguinated and the tourniquet was inflated. We then made a mid-line incision incorporating areas of previous incision, which we continued to the underlying capsular tissue. We performed a medial parapatellar arthrotomy. Patient noted to have dense scar tissue from previous surgery which was excised. We periosteally exposed the proximal tibia, excised the anterior fat pad and synovium from the distal aspect of the femur. We then subluxed the patella and brought the knee up into flexion. The lateral meniscus, ACL released. We used the appropriate guide with attached computer navigation to secure the distal femoral cutting block to the femur with pins and completed the distal femoral cut in 0 degrees to the mechanical axis with an oscillating saw. We removed the distal femoral cutting block and turned our at tention to the tibia. We used the extramedullary tibial alignment guide with computer navigation to secure the proximal tibial cutting block to the tibia with pins, setting it for a 1mm cut from the more involved side, medially and completed the proximal tibial cut. We then used the spacer block and alignment pippa to check the varus- valgus angle of our cuts and the extension gap. Patient noted to be tight medially that was tight so medial release done. The knee was then balanced in extension to varus/valgus stress. We marked our femoral anatomy, including Kathy's line and the epicondylar axis. Using that as a rotational guide, we used the sizing guide to size our femur properly, using a stylus to ensure there would be no notching. We then used the AP cutting guide to make our anterior and posterior cuts and chamfer cuts with an oscillating saw. We again checked the flexion and extension gaps and coronal balancing. Next, we sized our tibia and secured a baseplate with appropriate rotation with pins. We placed a trial femur in position and completed preparation of the notch with reamers and box osteotome and placed a trial notch in position. We used trials to choose our liner size and then placed the liner in place and reduced the knee. We used an oscillating saw to resurface the patella, and used a guide to choose the button size and completed patella preparation with the drill. We then placed a trial button in place. At this point, we checked our seven parameters: 1) Limb alignment 2) Extension 3) Flexion against gravity 4) Flexion stability 5) Varus-valgus balancing 6) Component rotation 7) Patella tracking We were satisfied with these and removed all trials with the exception of the baseplate. We completed preparation of the tibia with the appropriate reamer and keel impactor and then removed the baseplate. We placed a bone plug in the distal femur and then irrigated and dried all bony surfaces and injected our pain cocktail. We impacted our tibial, femoral and patellar components into position. We impacted our liner and reduced the knee. We did a april-articular cocktail block. We released the tourniquet and achieved hemostasis where necessary. A dilute betadine solution (17.5mL in 500mL saline) was used to wash the joint and left to sit for 3 minutes. This was then irrigated out with copious amounts of pulse lavage. We sprinkled 1g vancomycin powder below the fascia and 1g above the fascia. We copiously irrigated the knee. We re-checked our seven parameters. We closed our capsular incision with a PDS style suture. We irrigated further. We closed the subcutaneous tissue with Vicryl suture and re-approximated the skin with Lillie. We verified all lower extremity compartments were soft and compressible and that we had intact distal pulses. We wrapped the extremity in sterile Webril and russell bandage. The patient was transferred to the recovery [facility] in stable condition. Postop Plan: 1. WBAT with walker 2. PT -- work on motion 3. Prevena wound vac x 1 week; change to dry dressing for 1 week after 4. fu in [facility] ortho clinic in 2 weeks 5. CPM - patient at risk for stiffness due to previous surgeries with scar tissue Condition Good Disposition Still a Patient SILVER FITZGERALD MD October 30, 2024 11:59
[2024-10-30 13:00] VITALS: BP 124/55; PULSE 60; RESP 18; TEMP 97.8; O2SAT 95
--- NOTE | 2024-10-30 16:13 | DVHDS ---
DATE OF DISCHARGE: 10/30/2024 The patient is a 59-year-old gentleman who was admitted after he underwent surgery on the right knee for DJD of the knee. He has history of hypertension and anxiety. HOSPITAL COURSE: The patient did well postoperatively. Hemoglobin at time of discharge is 11.4. The patient has now been cleared for discharge by Orthopedics and will be discharged home with medications as per Orthopedics. He will follow up with the Orthopedic Clinic in the next one to two weeks. FINAL DIAGNOSES: * Hypertension. * Anxiety/depression. * Status post right knee surgery for DJD of the knee. Time spent in discharge planning and review of plan with the patient and nursing was 37 minutes. MD TK Land/YE TID: [id number] RECEIPT: [id number]
== END 2024-10-30 16:07 | disposition home or self-care (01) | DRG 470 ==
LOC: SUR 06:16 → OVERFLOW 07:26 → TELE-WESTW 14:08 → WEST WING 10-29 21:12
PROVIDERS: ADMIT Internal Medicine; ATTEND Internal Medicine
PROC: 0SRC0JZ Replacement of Right Knee Joint with Synthetic Substitute, Open Approach (ICD-10-PCS; 2024-10-28)
PROC: 8E0YXBZ Computer Assisted Procedure of Lower Extremity (ICD-10-PCS; principal; 2024-10-28 08:19)
DX: M17.31 Unilateral post-traumatic osteoarthritis, right knee (principal); M87.88 Other osteonecrosis, other site; F41.9 Anxiety disorder, unspecified; I10 Essential (primary) hypertension; F32.A Depression, unspecified; M21.061 Valgus deformity, not elsewhere classified, right knee
CPT/HCPCS: 36415; 73562; 80053; 81001; 85014; 85018; 85025; 85610; 85730; 86850; 86900; 86901; 97110; 97116; 97163; G0378; J1100; J1885; J2003; J2250; J2405; J2704; J3490

== ENCOUNTER 2024-11-03 03:47 | Emergency (ER) | payer BC ==
[~2024-11-03] VITALS: Ht 188 cm; Wt 104.5 kg
--- NOTE | 2024-11-03 04:07 | ED.PDOC ---
History of Present Illness HPI Comments 59 year old male was BIBA with a prior SHx of a total Knee replacement that took place here at [facility] on the 28 of October. Pt states that after the surgery he was prescribed [place] and since taking his medication he is unable to sleep, has sweats, SOB, a cough and perfuse hiccups with no alleviating factors at this point in time. Pt notes that she has a total of 3 hours in the past week and is unable to find any form of comfort. Pt denies any other associated symptoms, modifiers, recent injuries or sick contacts present at this time. Chief Complaint: Shortness of Breath Time Seen by MD: 04:02 Primary Care Provider: AMILCAR Peña Notes: Nurses Notes, Pier Master Assistant Notes, Medications, Allergies Allergies: Coded Allergies: NO KNOWN ALLERGIES (Unverified , 05/20/11) Home Meds Reported Medications Bupropion Hcl (Bupropion Hcl Er) 150 Mg Tab, 75 MG PO BID, TAB 09/06/23 Hctz (Hydrochlorothiazide) 25 Mg Tab, 12.5 MG PO, TAB 10/22/20 Lisinopril (Lisinopril) 20 Mg Tab, 10 MG PO DAILY, TAB 10/22/20 Sertraline Hcl (Sertraline Hcl) 100 Mg Tab, 100 MG PO QPM, #60 06/12/14 Information Source: Patient, Emergency Med Personnel Mode of Arrival: EMS Severity: Moderate Timing: Weeks Duration: Since onset Prehospital treatment: None Past Medical History PAST MEDICAL HISTORY: Denies Surgical History (Other): Total Knee Replacement Family History Family History: Reviewed,noncontributory to illness Social History Smoker: Non-Smoker Alcohol: Rarely Drugs: Denies Drug Use Lives In: Home Constitutional: reports: chills, sweats; denies: diaphoresis, fatigue, fever, malaise, weakness, others EENTM: denies: blurred vision, double vision, ear bleeding, ear discharge, ear drainage, ear pain, ear ringing, eye pain, eye redness, hearing loss, mouth pain, mouth swelling, nasal discharge, nose bleeding, nose congestion, nose pain, photophobia, tearing, throat pain, throat swelling, voice changes, others Respiratory: reports: SOB at rest, shortness of breath, others (Hiccups); denies: cough, hemoptysis, orthopnea, SOB with excertion, stridor, wheezing Cardiovascular: denies: chest pain, dizzy spells, diaphoresis, Dyspnea on exertion, edema, irregular heart beat, left arm pain, lightheadedness, palpitations, PND, syncope, others Gastrointestinal: denies: abdomen distended, abdominal pain, blood streaked bowels, constipated, diarrhea, dysphagia, difficulty swallowing, hematemesis, melena, nausea, poor appetite, poor fluid intake, rectal bleeding, rectal pain, vomiting, others Genitourinary: denies: burning, dysuria, flank pain, frequency, hematuria, incontinence, penile discharge, penile sore, pain, testicle pain, testicle swelling, urgency, others Neurological: denies: dizziness, fainting, headache, left sided numbness, left sided weakness, numbness, paresthesia, pre-existing deficit, right sided numbness, right sided weakness, seizure, speech problems, tingling, tremors, weakness, others Musculoskeletal: denies: back pain, gout, joint pain, joint swelling, muscle pain, muscle stiffness, neck pain, others Integumetry: denies: bruises, change in color, change in hair/nails, dryness, laceration, lesions, lumps, rash, wounds, others Allergic/Immunocompromised: denies: Difficulty Healing, Frequent Infections, Hives, Itching, others Hematologic/Lymphatic: denies: anemia, blood clots, easy bleeding, easy bruising, swollen glands, others Endocrine: denies: excessive hunger, excessive sweating, excessive thirst, excessive urination, flushing, intolerance to cold, intolerance to heat, unexplained weight gain, unexplained weight loss, others Psychiatric: denies: anxiety, bipolar disorder, depression, hopeless, panic disorder, schizophrenia, sleepless, suicidal, others All Other Systems: Reviewed and Negative Physical Exam General Appearance: No Apparent Distress, Normal HEENT: Pharynx Normal, TMs Normal Neck: Full Range of Motion, Non-Tender, Normal Respiratory: Chest Non-Tender, Lungs Clear, No Respiratory Distress, Normal Breath Sounds Cardiovascular: No Edema, No JVD, No Murmur, Normal Peripheral Pulses, Regular Rate/Rhythm Breast Exam: Deferred Gastrointestinal: Non Tender, No Pulsatile Mass, Soft Genitalia: Deferred Pelvic: Deferred Rectal: Deferred Extremities: No calf tenderness, Normal range of motion, Non-tender, No pedal edema Musculoskeletal : Apperance: Normal Neurologic: Alert, No Motor Deficits, Normal Mood Cerebellar Function: Normal Reflexes: Normal Skin: Dry, Normal Color, Warm Lymphatic: No Adenopathy Was a procedure done? Was a procedure done?: No EKG EKG : Pulse Rate (adult): 56 Cardiac Rhythm: NSR Block: RBBB ST: Normal Comments no acute ischemic changes, no evidence of PE Differential Dx Considerations may include: Differential diagnosis includes but not limited to: acute ME, supraventricular tachycardia, coronary ischemia, pulmonary embolus, ventricular arrhythmia and others X-Ray, Labs, Meds, VS Vital Signs Date Time Temp Pulse Resp B/P (MAP) Pulse Ox O2 Delivery O2 Flow Rate FiO2 11/03/24 05:30 57 11/03/24 03:56 97.9 70 16 125/48 (73) 100 97.9 Current Medications Medications (Trade) Dose Ordered Sig/Christian Route Start Time Stop Time Status Last Admin Methadone HCl (Methadone HCl Tablet) 20 mg ONCE ONCE PO 11/03/24 04:15 11/03/24 04:16 DC 11/03/24 04:15 Ondansetron HCl (Zofran Po) 8 mg ONCE ONCE PO 11/03/24 04:15 11/03/24 04:16 DC 11/03/24 04:15 Time of 1ST Reevaluation: 04:32 Reevaluation 1ST: Unchanged Patient Education/Counseling: Diagnosis, Treatment Family Education/Counseling: No Family Present Departure 1 Departure Time of Disposition: 05:50 Impression: Primary Impression: Opiate withdrawal Additional Impression: Post-operative pain Disposition: 01 HOME / SELF CARE / HOMELESS Condition: Stable Discharged With: Self Critical Care Note Critical Care Time?: No Stability Stability form required: No I personally scribed for TENNILLE YOUSSEF MD ([email or web address]) on 11/03/24 at 04:07. El ectronically submitted by Geraldo Bob ([email or web address]). TENNILLE YOUSSEF MD November 03, 2024 04:07
[2024-11-03 04:15] VITALS: PULSE 92; RESP 18; O2SAT 96
[2024-11-03] MEDS: METHADONE HCL 10 MG TAB PO ONE (04:15)
[2024-11-03] MEDS: ONDANSETRON ODT 4 MG TAB PO ONE (04:15)
[2024-11-03] MEDS: chlorproMAZINE HCL 25 MG/1 ML AMP IM ONE ×2 (04:15→07:25)
[2024-11-03 04:30] VITALS: TEMP 98.7
[2024-11-03] MEDS ORDERED: METO5TAB67 PO (05:55)
[2024-11-03] MEDS ORDERED: BACL20TA PO (05:55)
[2024-11-03] MEDS: METOCLOPRAMIDE HCL 10 MG TAB PO ONE (05:56)
[2024-11-03] MEDS: HYDROmorphone HCL 2 MG/ML VL/or syr IM ONE (05:57)
[2024-11-03] MEDS: BACLOFEN 10 MG TAB PO ONE ×2 (06:00→06:21)
[2024-11-03 06:30] VITALS: BP 129/65; PULSE 81; RESP 17; O2SAT 97
--- NOTE | 2024-11-03 06:39 | ECG ---
[facility] Test Date: 2024-11-03 Test Time: 05:30:12 Pat Name: RICHAR LEZAMA Department: ED Room: Gender: M Instructional Systems Designer: : 1965 Requested By: TENNILLE YOUSSEF Order Number: [id number] Reading MD: Zak Jin Measurements Intervals Bazine Rate: 57 P: -82 AK: 148 QRS: 49 QRSD: 120 T: 46 QT: 510 QTc: 497 Interpretive Statements Ectopic atrial rhythm Incomplete left bundle branch block Probable left ventricular hypertrophy Borderline prolonged QT interval Electronically Signed On 11-04-2024 12:14:33 PDT by Zak Jin Please click the below link to view image of tracing.
== END 2024-11-03 05:55 | disposition home or self-care (01) ==
LOC: EDBD 03:47 → ER 03:47
DX: F11.23 Opioid dependence with withdrawal (principal); G89.18 Other acute postprocedural pain; Z79.899 Other long term (current) drug therapy; Z96.659 Presence of unspecified artificial knee joint
CPT/HCPCS: 93005; 96372; 99284; J1171; J3230; J8597; Q0162

== ENCOUNTER 2025-01-29 17:18 | Emergency (ER) | payer BC, OTHER ==
[~2025-01-29] VITALS: Ht 188 cm; Wt 107.0 kg
[~2025-01-29 17:18] MED LIST changes: +BACL20TA PO; +METO5TAB67 PO
--- NOTE | 2025-01-29 17:49 | ED.PDOC ---
History of Present Illness HPI Comments 59-year-old male with presents with a chief complaint of right thumb pain s/p table saw accident. Patient states that he was using table saw and accidentally injured his thumb on his right hand. Patient is missing tissue from his thumb down to the metatarsal. Patient reports a 10/10 pain. Chief Complaint: S/P AMPUTATION OF FINGER Time Seen by MD: 17:40 Primary Care Provider: Lonnie Peña Notes: Medications, Allergies Allergies: Coded Allergies: NO KNOWN ALLERGIES (Unverified , 05/20/11) Home Meds Active Scripts Cephalexin Monohydrate (Cephalexin) 500 Mg Cap, 500 MG PO Q6HR for 7 Days, #28 CAP Prov:DI BENITEZ MD 01/29/25 Metoclopramide Hcl (Reglan) 5 Mg Tab, 5 MG PO Q6HP PRN, #60 TAB Prov:TENNILLE YOUSSEF MD 11/03/24 Baclofen (Baclofen) 20 Mg Tab, 1 TAB PO TID PRN, #90 TAB 2 Refills Prov:TENNILLE YOUSSEF MD 11/03/24 Reported Medications Bupropion Hcl (Bupropion Hcl Er) 150 Mg Tab, 75 MG PO BID, TAB 09/06/23 Hctz (Hydrochlorothiazide) 25 Mg Tab, 12.5 MG PO, TAB 10/22/20 Lisinopril (Lisinopril) 20 Mg Tab, 10 MG PO DAILY, TAB 10/22/20 Sertraline Hcl (Sertraline Hcl) 100 Mg Tab, 100 MG PO QPM, #60 06/12/14 Information Source: Patient Mode of Arrival: Ambulatory Severity: Moderate Timing: Minutes Duration: Since onset Prehospital treatment: None Past Medical History PAST MEDICAL HISTORY: Denies Family History Family History: Reviewed,noncontributory to illness Social History Smoker: Non-Smoker Alcohol: Rarely Drugs: Denies Drug Use Lives In: Home Constitutional: denies: chills, diaphoresis, fatigue, fever, malaise, sweats, weakness, others EENTM: denies: blurred vision, double vision, ear bleeding, ear discharge, ear drainage, ear pain, ear ringing, eye pain, eye redness, hearing loss, mouth pain, mouth swelling, nasal discharge, nose bleeding, nose congestion, nose pain, photophobia, tearing, throat pain, throat swelling, voice changes, others Respiratory: denies: cough, hemoptysis, orthopnea, SOB at rest, shortness of breath, SOB with excertion, stridor, wheezing, others Cardiovascular: denies: chest pain, dizzy spells, diaphoresis, Dyspnea on exertion, edema, irregular heart beat, left arm pain, lightheadedness, palpitations, PND, syncope, others Gastrointestinal: denies: abdomen distended, abdominal pain, blood streaked bowels, constipated, diarrhea, dysphagia, difficulty swallowing, hematemesis, melena, nausea, poor appetite, poor fluid intake, rectal bleeding, rectal pain, vomiting, others Genitourinary: denies: burning, dysuria, flank pain, frequency, hematuria, incontinence, penile discharge, penile sore, pain, testicle pain, testicle swelling, urgency, others Neurological: denies: dizziness, fainting, headache, left sided numbness, left sided weakness, numbness, paresthesia, pre-existing deficit, right sided numbness, right sided weakness, seizure, speech problems, tingling, tremors, weakness, others Musculoskeletal: reports: others (RIGHT THUMB PAIN); denies: back pain, gout, joint pain, joint swelling, muscle pain, muscle stiffness, neck pain Integumetry: denies: bruises, change in color, change in hair/nails, dryness, laceration, lesions, lumps, rash, wounds, others Allergic/Immunocompromised: denies: Difficulty Healing, Frequent Infections, Hives, Itching, others Hematologic/Lymphatic: denies: anemia, blood clots, easy bleeding, easy bruising, swollen glands, others Endocrine: denies: excessive hunger, excessive sweating, excessive thirst, excessive urination, flushing, intolerance to cold, intolerance to heat, unexplained weight gain, unexplained weight loss, others Psychiatric: denies: anxiety, bipolar disorder, depression, hopeless, panic disorder, schizophrenia, sleepless, suicidal, others All Other Systems: Reviewed and Negative Physical Exam General Appearance: No Apparent Distress, Normal HEENT: Normal ENT Inspection, Pharynx Normal, TMs Normal Neck: Full Range of Motion, Non-Tender, Normal, Normal Inspection Respiratory: Chest Non-Tender, Lungs Clear, No Accessory Muscle Use, No Respiratory Distress, Normal Breath Sounds Cardiovascular: No Edema, No JVD, No Murmur, No Gallop, Normal Peripheral Pulses, Regular Rate/Rhythm Breast Exam: Deferred Gastrointestinal: No Organomegaly, Non Tender, No Pulsatile Mass, Normal Bowel Sounds, Soft Genitalia: Deferred Pelvic: Deferred Rectal: Deferred Extremities: No calf tenderness, Normal capillary refill, Normal inspection, Normal range of motion, Non-tender, No pedal edema Musculoskeletal : Apperance: Normal Neurologic: Alert, family service assistant II-XII nml as Tested, No Motor Deficits, Normal Affect, Normal Mood, No Sensory Deficits Cerebellar Function: Normal Reflexes: Normal Skin: Dry, Normal Color, Warm Lymphatic: No Adenopathy Was a procedure done? Was a procedure done?: Yes Sedation Sedation?: No Informed consent obtained: Yes Other Procedure Procedure Procedure 1. Digital block of the right 1st finger. After the finger was scrubbed with Betadine I used 1% lidocaine injected medially and laterally on the proximal finger of the 1st finger on the right hand. This provided very effective anesthesia to the local thumb. There is no complications patient tolerated the Procedure well. Procedure 2. This complex avulsion/amputation/laceration type of wound required a complex repair. With revising the wound margin, undermining the edges to allow for better approximation of the edges, and debridement of devitalized tissue, I was able to close the wound opening into a stump. A total of 14 stitches with 3-0 nylon was used to make this closure. Patient tolerated the procedure well without any complications. Differential Dx Considerations may include: Differential diagnosis include amputation, partial amputation, fracture, dislocation, retained foreign body, neurovascular injuries, nail avulsion. The workup including the x-ray shows the patient had fracture of the distal portion of the tuft of the thumb with the fracture portion completely avulsed. The soft tissue does not contain any foreign bodies. The wound is actually clean and we further irrigated and explored. The nail is completely avulsed as well. The dorsal portion of the thumb is also amputated. However there is no repairable lacerations or re-attached able part of the digit. Patient will be placed on antibiotic and pain medication will need to follow up with his primary doctor. I informed him that he will heal but with an obvious deformity of the affected thumb. pt states that he has his own norco from the last left knee surgery, and does not need a prescription X-Ray, Labs, Meds, VS Vital Signs Date Time Temp Pulse Resp B/P (MAP) Pulse Ox O2 Delivery O2 Flow Rate FiO2 01/29/25 19:39 159/74 01/29/25 19:25 98.7 59 20 159/74 (102) 99 98.7 01/29/25 19:25 59 20 99 Room Air 01/29/25 17:19 97.9 69 18 153/66 96 97.9 Current Medications Medications (Trade) Dose Ordered Sig/Christian Route Start Time Stop Time Status Last Admin Fentanyl Citrate 25 mcg ONCE ONCE IM 01/29/25 18:00 01/29/25 18:01 DC 01/29/25 19:39 Neomycin/ Polymyxin/ Bacitracin (Triple Antibiotic) 1 applic ONCE ONCE TOP 01/29/25 18:00 01/29/25 18:01 DC 01/29/25 18:00 Cephalexin (Keflex Capsule) 500 mg ONCE ONCE PO 01/29/25 19:00 01/29/25 19:34 DC 01/29/25 19:46 Time of 1ST Reevaluation: 18:10 Reevaluation 1ST: Unchanged Patient Education/Counseling: Diagnosis, Treatment, Prognosis, Need For Follow Up Family Education/Counseling: Diagnosis, Treatment, Need For Follow Up SEPSIS Sepsis Screen Date sepsis recognized/suspect: Jan 29, 2025 Time Sepsis recognized/suspect: 172 Recent Procedure: No On Antibiotic Therapy: No Respiratory Rate >20: No Heart Rate >90: No Temp<36 C (96.8 F) or >38.3 C: No SBP <90 or MAP <65 mmHG: No New Acute Mental Status Change: No Is the patient on CPAP, BIPAP,: No Physician Orders R 1st Finger Xray (01/29/25 17:46) Clean Wound (01/29/25 ) Vital Signs Date Time Temp Pulse Resp B/P (MAP) Pulse Ox O2 Delivery O2 Flow Rate FiO2 01/29/25 19:39 159/74 01/29/25 19:25 98.7 59 20 159/74 (102) 99 98.7 01/29/25 19:25 59 20 99 Room Air 01/29/25 17:19 97.9 69 18 153/66 96 97.9 Medications Medications Dose Ordered Sig/Christian Route Start Time Stop Time Status Last Admin Dose Admin Cephalexin 500 mg ONCE ONCE PO 01/29/25 19:00 01/29/25 19:34 DC 01/29/25 19:46 Fentanyl Citrate 25 mcg ONCE ONCE IM 01/29/25 18:00 01/29/25 18:01 DC 01/29/25 19:39 Neomycin/ Polymyxin/ Bacitracin 1 applic ONCE ONCE TOP 01/29/25 18:00 01/29/25 18:01 DC 01/29/25 18:00 Tranexamic Acid 10 ml @ ud STK-MED ONCE .ROUTE 01/29/25 19:50 01/29/25 19:47 DC 01/29/25 19:57 Tranexamic Acid 10 ml @ ud STK-MED ONCE .ROUTE 01/29/25 20:00 01/29/25 19:56 DC 01/29/25 20:00 Departure 1 Departure Time of Disposition: 18:52 Impression: Primary Impression: Avulsion fracture Additional Impression: Amputation of finger Qualified Codes: S68.119A - Complete traumatic metacarpophalangeal amputation of unspecified finger, initial encounter Disposition: HOME / SELF CARE / HOMELESS Condition: Good (.?) Additional Instructions: follow up with your doctor in 48 hours for recheck return to ER for any concerns, especially for infections e-Prescriptions Cephalexin Monohydrate (Cephalexin) 500 Mg Cap 500 MG PO Q6HR for 7 Days, #28 CAP Prov: DI BENITEZ MD 01/29/25 Discharged With: Self Critical Care Note Critical Care Time?: No Stability Stability form required: No Heart Score Heart Score: Heart Score Response (Comments) Value History N/A 0 EKG N/A 0 Age N/A 0 Risk Factors N/A 0 Troponin N/A 0 Total 0 I personally scribed for DI BENITEZ MD ([email or web address]) on 01/29/25 at 17:49. Electronically submitted by Guillermo Flores ([email or web address]). DI BENITEZ MD Jan 29, 2025 17:49
[2025-01-29] MEDS: NEOMYCIN-BACITRACIN-POLYM UNITDOSE PKG TOP OINT TOP ONE (18:00)
--- NOTE | 2025-01-29 18:30 | DVH ---
CLINICAL INDICATION: injury TECHNIQUE: 3 radiographic views of the right 1st digit were obtained. Comparison: None FINDINGS/IMPRESSION: There is nonvisualization of the mid and distal 1st digit distal phalanx with acute comminuted displa ariella fracture of the residual proximal part. There is overlying skin defects and wound with associated soft tissue edema.
[2025-01-29] MEDS ORDERED: HYDR-4798 PO (18:57)
[2025-01-29] MEDS ORDERED: CEPH500C PO (18:57)
[2025-01-29 19:25] VITALS: PULSE 59; RESP 20; TEMP 98.7; O2SAT 99
[2025-01-29 19:39] VITALS: BP 159/74
[2025-01-29] MEDS: fentaNYL CITRATE 100 MCG/2 ML VL IM ONE (19:39)
[2025-01-29] MEDS: CEPHALEXIN 250 MG CAP PO ONE (19:46)
[2025-01-29] MEDS: TRANEXAMIC ACID 1,000 MG in SODIUM CHL 0.9% 100 ML IV ONE (19:48)
[2025-01-29] MEDS: TRANEXAMIC ACID 1,000 mg/10ml INJ VIAL TOP ONE ×2 (19:57→20:00)
[2025-01-29] MEDS: TRANEXAMIC ACID 10 ML ONE ×2 (19:57→20:00)
[2025-01-31] MEDS ORDERED: TRANEXAMIC ACID 1,000 MG in SODIUM CHL 0.9% 100 ML IV ONE (07:15)
== END 2025-01-29 20:50 | disposition home or self-care (01) ==
LOC: ER 17:18
DX: S68.119A Complete traumatic metacarpophalangeal amputation of unspecified finger, initial encounter (principal); F10.90 Alcohol use, unspecified, uncomplicated; Z79.899 Other long term (current) drug therapy; X58.XXXA Exposure to other specified factors, initial encounter; Y93.89 Activity, other specified; Y92.89 Other specified places as the place of occurrence of the external cause; Y99.8 Other external cause status; Y90.9 Presence of alcohol in blood, level not specified
CPT/HCPCS: 13131; 73140; 96372; 99285; J3010